=== PATIENT | female | born 1930 | race Caucasian/White ===

== ENCOUNTER → 2016-09-16 | Outpatient (CLI) | payer MEDICARE ==
[~2016-09-16] MED LIST: ALEN70TA39 PO; ARIM1TAB PO; BENI40TA30 PO; COMFSUS2 EACH EYE; FIBE625T24 PO; FISH1000 PO; FLOV220A INH; LEVO100T4 PO; LIOT5 PO; MOTR200T PO; MULT-65 PO; ROPI0.5T PO; STOO100T PO; VITA400C58 PO; XYZA5TAB2 PO
[2016-09-16 09:25] LABS: BACTERIA, URINE RARE /hpf; BLOOD, URINE TRACE (NEG); GLUCOSE,URINE NEG (NEG); KETONE, URINE NEG (NEG); MUCUS URINE FEW /lpf (OCC); NITRITE,URINE NEG (NEG); PH, URINE 5.5 (5.0-8.5); SQUAMOUS EPITHELIAL CELL URINE 1 /hpf (0-5); URINE COLOR YELLOW (YELLW/STRAW)
[2016-09-16 09:28] LABS: AUTOMATED NEUTROPHIL # 2.7 TH/MM3 (1.8-7.7); BASOPHIL % 0.4 % (0.0-2.0); EOSINOPHIL # 0.1 TH/MM3 (0-0.4); EOSINOPHIL % 2.9 % (0.0-4.0); HEMATOCRIT 37.6 % (35.0-46.0); HEMO FLAGS DIFF FINAL; LYMPHOCYTE # 1.3 TH/MM3 (1.0-4.8); MEAN CELL VOLUME 86.7 FL (80.0-100.0); MEAN CORPUSCULAR HEMOGLOBIN 28.8 PG (27.0-34.0); MEAN CORPUSCULAR HGB CONC 33.2 % (32.0-36.0); MONO % 9.9 % (0.0-8.0); NEUT % 58.8 % (16.0-70.0); PLATELET COUNT 285 TH/MM3 (150-450); RED BLOOD COUNT 4.34 MIL/MM3 (4.00-5.30); RED CELL DISTRIBUTION WIDTH 15.3 % (11.6-17.2); WHITE BLOOD COUNT 4.6 TH/MM3 (4.0-11.0)
[2016-09-16 09:30] LABS: COMMENT (UR) CULT NOT INDICATED; CULTURE IF INDICATED CULT NOT INDICATED
[2016-09-16 10:15] LABS: FERRITIN 59 NG/ML (8-252); FREE T4 1.29 NG/DL (0.76-1.46); HDL CHOLESTEROL 124.9 MG/DL (40.0-60.0); LDL CHOLESTEROL 127 MG/DL (0-99); TRANSFERRIN IRON PROFILE 267 MG/DL (200-360)
== END ==
LOC: PLAB 07:12
PROVIDERS: ATTEND Internal Medicine
DX: E78.5 Hyperlipidemia, unspecified (principal); I10 Essential (primary) hypertension; D64.9 Anemia, unspecified; E03.9 Hypothyroidism, unspecified
CPT/HCPCS: 36415; 80061; 81001; 82607; 82728; 82746; 83540; 83550; 84439; 85025

== ENCOUNTER → 2017-04-21 | Outpatient (CLI) | payer MEDICARE ==
[2017-04-21 10:03] LABS: FREE T3 1.94 PG/ML (2.18-3.98); FREE T4 1.23 NG/DL (0.76-1.46)
[2017-04-22 23:55] LABS: THYROGLOB ABS LESS THAN 1 IU/mL (< OR = 1)
[2017-04-23 23:51] LABS: THYROGLOBULN 0.2 ng/mL (2.8-40.9)
== END ==
LOC: PLAB 06:57
PROVIDERS: ATTEND Internal Medicine Endocrinology, Diabetes & Metabolism
DX: E03.9 Hypothyroidism, unspecified (principal); E89.0 Postprocedural hypothyroidism
CPT/HCPCS: 36415; 82533; 82607; 82747; 84432; 84439; 84443; 84481; 86376; 86800

== ENCOUNTER → 2017-09-07 | Outpatient (CLI) | payer MEDICARE ==
[2017-09-07 13:35] LABS: BICARBONATE 29.3 MEQ/L (21.0-32.0); CALCIUM 9.9 MG/DL (8.5-10.1); CREATININE 0.91 MG/DL (0.50-1.00)
[2017-09-07 13:46] LABS: FREE T3 3.33 PG/ML (2.18-3.98); FREE T4 1.27 NG/DL (0.76-1.46)
[2017-09-09 17:51] LABS: THYROID PEROX AB (MICROSOMAL) 7 IU/mL (<9)
[2017-09-10 03:49] LABS: THYROGLOB ABS LESS THAN 1 IU/mL (< OR = 1)
== END ==
LOC: PLAB 08:38
PROVIDERS: ATTEND Internal Medicine Endocrinology, Diabetes & Metabolism
DX: E03.9 Hypothyroidism, unspecified (principal)
CPT/HCPCS: 36415; 80048; 84432; 84439; 84443; 84481; 86376; 86800

== ENCOUNTER 2017-12-15 18:16 | Observation (INO) | payer MEDICARE ==
[~2017-12-15] VITALS: Ht 162.6 cm; Wt 55.0 kg
[2017-12-15 18:20] VITALS: BP 165/90; PULSE 122; RESP 16; TEMP 103; O2SAT 93
[2017-12-15 19:00] VITALS: BP 174/85; PULSE 113; RESP 18; TEMP 103; O2SAT 91; O2SAT 93
[2017-12-15] MEDS ORDERED: RESP: IPRATROPIUM 0.5 MG/2.5 ML NEB NEB ONE ×2 (19:45→23:45)
--- NOTE | 2017-12-15 19:50 | PD ---
HPI . Shortness of breath, fever Chief Complaint: Fever Time Seen by Provider: 19:23 Travel History International Travel<30 days: No Contact w/Intl Traveler<30days: No Traveled to known affect area: No History of Present Illness HPI Patient is a 86-year-old female who has a history of allergies she is on Flonase for her house parent she has had a 2 weeks course of coughing shortness of breath which is not getting any better. She saw her house parent 5 days ago started on Tessalon Perles. Which helped minimally but she continues with fever shortness of breath coughing she is bringing up greenish sputum she reports. And on initial eval she is deciding on room air to 90% O2 patient has a fever as well as body aches generalized malaise fever cough 7-10 day course. 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 She is with her recent senior software architect that she reports she met on [employer] she says they both have and and met recently. He does not have any cough or cold she has no sick contacts. PFSH Past Medical History Hx Anticoagulant Therapy: No Arthritis: Yes Asthma: No Autoimmune Disease: No Anxiety: No Depression: No Heart Rhythm Problems: No Cancer: Yes (THYROID; LUNG; BREAST) Cardiovascular Problems: Yes (HTN) High Cholesterol: No Chemotherapy: No Chest Pain: No COPD: No Cerebrovascular Accident: No Diabetes: No Endocrine: No Gastrointestinal Disorders: Yes GERD: Yes Hepatitis: No Hiatal Hernia: Yes (GERD) Hypertension: Yes Immune Disorder: No Medical other: Yes (ARTHRITIS) Musculoskeletal: No Neurologic: No Psychiatric: No Respiratory: Yes (SLEEP APNEA POSSIBLE) Migraines: Yes Radiation Therapy: Yes Seizures: No Sleep Apnea: No Thyroid Disease: Yes (Thyroidectomy) Influenza Vaccination: Yes ?: Not Past Surgical History Abdominal Surgery: Yes (APPEND) Appendectomy: Yes Body Medical Devices: ONE SCREW IN DISTAL LEG Endocrine Surgery: Yes (THYROIDECTOMY) Gynecologic Surgery: Yes (HYST) Hysterectomy: Yes Mastectomy: Yes (LEFT) Oral Surgery: Yes (T&A) Pacemaker: No Tonsillectomy: Yes Other Surgery: Yes Social History Alcohol Use: No Tobacco Use: No Substance Use: No Allergies-Medications (Allergen,Severity, Reaction): Coded Allergies: Sulfa (Sulfonamide Antibiotics) (Unverified Allergy, Severe, Rash, 12/15/17) codeine (Unverified Allergy, Severe, Rash, 12/15/17) Reported Meds & Prescriptions Reported Meds & Active Scripts Active Reported Tylenol (Acetaminophen) 325 Mg Tab 650 Mg PO BID PRN Tylenol (Acetaminophen) 325 Mg Tab 650 Mg PO BID PRN Genteal Severe Opth Gel (Hypromellose) 0.25-0.3% Gel 1 Drop EACH EYE DIRECTED PRN Latanoprost Opth Drops (Latanoprost) 0.005% Drops 1 Drop EACH EYE HS Refrigerate until opened. Olmesartan 20 Mg Tab 20 Mg PO DAILY Teresa-D 24 Hour Allergy (Fexofenadine-Pseudoephedrine ER 24 HR) 180-240 Mak 1 Tab PO DAILY Synthroid (Levothyroxine Sodium) 100 Mcg Tab 100 Mcg PO DAILY Liothyronine (Liothyronine Sodium) 5 Mcg Tab 5 Mcg PO DAILY Review of Systems Except as stated in HPI: all other systems reviewed are Neg General / Constitutional: Positive: Fever, Chills Respiratory: Positive: Cough, Shortness of Breath Musculoskeletal: Positive: Myalgias Neurologic: Positive: Weakness Physical Exam Narrative GENERAL: Patient is awake alert appears younger than it stated age SKIN: Warm and dry. HEAD: Atraumatic. Normocephalic. EYES: Pupils equal and round. No scleral icterus. No injection or drainage. ENT: No nasal bleeding or discharge. Mucous membranes pink and moist. NECK: Trachea midline. No JVD. CARDIOVASCULAR: Regular rate and rhythm. Patient has a holosystolic murmur RESPIRATORY: No accessory muscle use. Patient has a cough with deep inspiration and minimal expiratory wheeze and mild decreased breath sounds in lower lobe on the left GASTROINTESTINAL: Abdomen soft, non-tender, nondistended. Hepatic and splenic margins not palpable. MUSCULOSKELETAL: Extremities without clubbing, cyanosis, or edema. No obvious deformities. NEUROLOGICAL: Awake and alert. No obvious cranial nerve deficits. Motor grossly within normal limits. Five out of 5 muscle strength in the arms and legs. Normal speech. PSYCHIATRIC: Appropriate mood and affect; insight and judgment normal. Data Data Last Documented VS Vital Signs Date Time Temp Pulse Resp B/P (MAP) Pulse Ox O2 Delivery O2 Flow Rate FiO2 12/16/17 00:14 95 Nasal Cannula 2.00 12/16/17 00:01 73 16 117/57 (77) 12/15/17 20:00 98.7 Orders Orders Ipratropium Neb (Atrovent Neb) (12/15/17 19:45) Complete Blood Count With Diff (12/15/17 19:44) Comprehensive Metabolic Panel (12/15/17 19:44) Lipase (12/15/17 19:44) Ua Includes Microscopic (12/15/17 19:44) Chest, Pa & Lat (12/15/17 19:44) Oxygen Administration (12/15/17 19:45) Guaifenesin Liq (Robitussin Liq) (12/15/17 20:00) Influenzae A/B Antigen (12/15/17 19:46) Acetaminophen (Tylenol) (12/15/17 20:00) Blood Culture (12/15/17 19:56) Urine Culture (12/15/17 20:23) Prednisone (Deltasone) (12/15/17 21:45) Azithromycin (Zithromax) (12/15/17 21:45) Ipratropium Neb (Atrovent Neb) (12/15/17 23:45) Sodium Chloride 0.9% Flush (Ns Flush) (12/16/17 01:00) Sodium Chloride 0.9% Flush (Ns Flush) (12/16/17 09:00) Ceftriaxone Inj (Rocephin Inj) (12/16/17 01:00) Azithromycin Inj (Zithromax Inj) (12/16/17 09:00) Albuterol-Ipratropium Neb (Duoneb Neb) (12/16/17 01:00) Place In Observation (12/16/17 ) Vital Signs (Adult) Q4H (12/16/17 00:56) Notify Parameters (12/16/17 00:56) Intake + Output Q8H (12/16/17 00:56) ^ Smoking Cessation Counseling (12/16/17 00:56) Diet Heart Healthy (12/16/17 Breakfast) Resp Oxygen Braydon C Titrat 1-4 L (12/16/17 ) Heparin Inj (Heparin Inj) (12/16/17 09:00) Methylprednisolone So Succ Inj (Solumedr (12/16/17 06:00) Admit Order (Ed Use Only) (12/16/17 01:03) Labs Laboratory Tests Test 12/15/17 19:10 12/15/17 20:23 White Blood Count 8.4 TH/MM3 Red Blood Count 4.09 MIL/MM3 Hemoglobin 12.7 GM/DL Hematocrit 36.6 % Mean Corpuscular Volume 89.6 FL Mean Corpuscular Hemoglobin 31.0 PG Mean Corpuscular Hemoglobin Concent 34.6 % Red Cell Distribution Width 12.7 % Platelet Count 225 TH/MM3 Mean Platelet Volume 8.1 FL Neutrophils (%) (Auto) 88.9 % Lymphocytes (%) (Auto) 5.5 % Monocytes (%) (Auto) 5.2 % Eosinophils (%) (Auto) 0.2 % Basophils (%) (Auto) 0.2 % Neutrophils # (Auto) 7.5 TH/MM3 Lymphocytes # (Auto) 0.5 TH/MM3 Monocytes # (Auto) 0.4 TH/MM3 Eosinophils # (Auto) 0.0 TH/MM3 Basophils # (Auto) 0.0 TH/MM3 CBC Comment DIFF FINAL Differential Comment Blood Urea Nitrogen 18 MG/DL Creatinine 0.91 MG/DL Random Glucose 109 MG/DL Total Protein 7.8 GM/DL Albumin 3.5 GM/DL Calcium Level 9.6 MG/DL Alkaline Phosphatase 46 U/L Aspartate Amino Transf (AST/SGOT) 25 U/L Alanine Aminotransferase (ALT/SGPT) 22 U/L Total Bilirubin 0.4 MG/DL Sodium Level 136 MEQ/L Potassium Level 3.9 MEQ/L Chloride Level 102 MEQ/L Carbon Dioxide Level 27.6 MEQ/L Anion Gap 6 MEQ/L Estimat Glomerular Filtration Rate 59 ML/MIN Lipase 135 U/L Urine Color YELLOW Urine Turbidity CLEAR Urine pH 5.5 Urine Specific [place] 1.010 Urine Protein NEG mg/dL Urine Glucose (UA) NEG mg/dL Urine Ketones TRACE mg/dL Urine Occult Blood MOD Urine Nitrite NEG Urine Bilirubin NEG Urine Urobilinogen 0.2 MG/DL Urine Leukocyte Esterase SMALL Urine RBC 4-9 /hpf Urine WBC 6-8 /hpf Urine Squamous Epithelial Cells > 8 /hpf Urine Bacteria MANY /hpf Microscopic Urinalysis Comment CULTURE INDICATED MDM Medical Decision Making Medical Screen Exam Complete: Yes Emergency Medical Condition: Yes Medical Record Reviewed: Yes Differential Diagnosis Patient may have influenza versus viral bronchitis versus pneumonia versus UTI versus rhinovirus coronavirus causing inflammation of her lungs reactive airway allergic reaction other Narrative Course Chest x-ray is ordered urine is now analyzed labs are sent blood cultures, pt given Prednisone and tylenol azithromycin all PO in the hope I can treat pt as an outpt basis. However pt conitinues to desaturate on RA to 88 and will 1 liter o2 sat is 95% I observe 5 hrs and repeat atrovent nebs and still no improvement in Saturation , admitted to observation , within few hours in ER awaiting bed . pt improves greatly and feels much improved. Diagnosis Primary Impression: Bronchitis Additional Impression: Left lower lobe pneumonia Qualified Codes: J18.1 - Lobar pneumonia, unspecified organism Admitting Information Admitting Physician Requests: Observation Alfredo Mai MD December 15, 2017 19:50
[2017-12-15 19:58] LABS: AUTOMATED NEUTROPHIL # 7.5 TH/MM3 (1.8-7.7); BASOPHIL % 0.2 % (0.0-2.0); EOSINOPHIL % 0.2 % (0.0-4.0); HEMATOCRIT 36.6 % (35.0-46.0); HEMOGLOBIN 12.7 GM/DL (11.6-15.3); LYMPH % 5.5 % (9.0-44.0); LYMPHOCYTE # 0.5 TH/MM3 (1.0-4.8); MEAN CELL VOLUME 89.6 FL (80.0-100.0); MEAN CORPUSCULAR HGB CONC 34.6 % (32.0-36.0); MEAN PLATELET VOLUME 8.1 FL (7.0-11.0); MONO % 5.2 % (0.0-8.0); MONOCYTE # 0.4 TH/MM3 (0-0.9); NEUT % 88.9 % (16.0-70.0); PLATELET COUNT 225 TH/MM3 (150-450); RED BLOOD COUNT 4.09 MIL/MM3 (4.00-5.30); RED CELL DISTRIBUTION WIDTH 12.7 % (11.6-17.2); WHITE BLOOD COUNT 8.4 TH/MM3 (4.0-11.0)
[2017-12-15 20:00] VITALS: BP 125/66; PULSE 82; RESP 18; TEMP 98.7; O2SAT 96
[2017-12-15] MEDS ORDERED: guaiFENesin SOLUTION 200 MG/10 ML CUP PO ONE (20:00)
[2017-12-15] MEDS ORDERED: ACETAMINOPHEN 500 MG CPLT PO ONE (20:00)
[2017-12-15 20:15] LABS: CHLORIDE 102 MEQ/L (98-107); SODIUM (NA) 136 MEQ/L (136-145)
[2017-12-15 20:21] LABS: ALBUMIN 3.5 GM/DL (3.4-5.0); BICARBONATE 27.6 MEQ/L (21.0-32.0); BLOOD UREA NITROGEN 18 MG/DL (7-18); CALCIUM 9.6 MG/DL (8.5-10.1); GLUCOSE,RANDOM 109 MG/DL (74-106)
[2017-12-15 20:24] LABS: ALT (GPT) 22 U/L (10-53); AST (GOT) 25 U/L (15-37); CREATININE 0.91 MG/DL (0.50-1.00); GLOMERULAR FILTRATION RATE 59 ML/MIN (>89)
[2017-12-15 20:26] LABS: TOTAL BILIRUBIN ADULT 0.4 MG/DL (0.2-1.0); TOTAL PROTEIN 7.8 GM/DL (6.4-8.2)
[2017-12-15 20:27] LABS: ALKALINE PHOSPHATASE 46 U/L (45-117)
[2017-12-15 20:30] LABS: BILIRUBIN, URINE NEG (NEG); BLOOD, URINE MOD (NEG); GLUCOSE,URINE NEG (NEG); KETONE, URINE TRACE mg/dL (NEG); NITRITE,URINE NEG (NEG); PH, URINE 5.5 (5.0-8.5); URINE COLOR YELLOW (YELLW/STRAW); URINE LEUKOCYTE ESTERASE SMALL (NEG)
[2017-12-15 20:37] LABS: BACTERIA, URINE MANY /hpf; SQUAMOUS EPITHELIAL CELL URINE > 8 /hpf (0-5)
--- NOTE | 2017-12-15 20:53 | RADRPT ---
EXAM DATE/TIME: 12/15/2017 20:04 [place] COMPARISON: CHEST PA & LAT, April 30, 2016, 14:24. INDICATIONS : Cough for 1 week MEDICAL HISTORY : Carcinoma, breast. SURGICAL HISTORY : Left mastectomy ENCOUNTER: Initial ACUITY: 1 week PAIN SCORE: 0/10 LOCATION: Bilateral chest FINDINGS: PA and lateral views of the chest demonstrate minimal left basilar density. Right lung clear. Heart n ormal in size. Osseous structures are intact. Calcification right apex, likely benign granuloma. CONCLUSION: 1. Minimal left basilar infiltrate. Abdoul Lawrence MD on December 15, 2017 at 20:51 Board Certified Radiologist. This report was verified electronically.
[2017-12-15 21:00] VITALS: BP 122/69; PULSE 80; RESP 18; O2SAT 92
[2017-12-15] MEDS ORDERED: AZITHROMYCIN 250 MG TAB PO ONE (21:45)
[2017-12-15] MEDS ORDERED: predniSONE 20 MG TAB PO ONE (21:45)
[2017-12-15 22:00] VITALS: BP 107/50; PULSE 78; RESP 16; O2SAT 96
[2017-12-15 23:00] VITALS: BP 109/56; PULSE 74; RESP 18; O2SAT 96
[2017-12-15] MEDS ORDERED: LATA0.002 EACH EYE (23:33)
[2017-12-15] MEDS ORDERED: GENT0.3G EACH EYE (23:33)
[2017-12-15] MEDS ORDERED: LEVO.1 PO (23:33)
[2017-12-15] MEDS ORDERED: TYLE325T PO ×2 (23:33→23:34)
[2017-12-15] MEDS ORDERED: OLME0.09 PO (23:33)
[2017-12-15] MEDS ORDERED: FEXO1TAB97 PO (23:33)
[2017-12-15] MEDS ORDERED: LIOT5TAB3 PO (23:33)
[2017-12-16] VITALS (9 sets, daily range): BP systolic 111–151; BP diastolic 55–69; PULSE 70–80; RESP 16–21; TEMP 96.9–97.4; O2SAT 92–98
[2017-12-16] MEDS ORDERED: cefTRIAXone INJ 1,000 MG in SODIUM CHLORIDE 0.9% INJ 100 ML IV SCH (01:00)
[2017-12-16] MEDS ORDERED: SODIUM CHLORIDE 0.9% FLUSH 10 ML FLUSH IV FLUSH PRN (01:00)
[2017-12-16] MEDS: RESP: ALBUTEROL 2.5 MG/IPRATROPIUM 0.5 MG NEB (PRN) INH ×2 (03:59→07:26)
[2017-12-16] MEDS: methylPREDNISolone SOD SUCC 40 MG/1 ML VIAL IV PUSH SCH ×2 (06:55→15:36)
[2017-12-16] MEDS ORDERED: SODIUM CHLORIDE 0.9% FLUSH 10 ML FLUSH IV FLUSH SCH (09:00)
[2017-12-16] MEDS ORDERED: HEPARIN SODIUM - SQ 10,000 UNITS/ML VIAL SQ SCH (09:00)
[2017-12-16] MEDS ORDERED: AZITHROMYCIN INJ 500 MG in SODIUM CHLOR 0.9% 250 ML INJ 250 ML IV SCH (09:00)
[2017-12-16] MEDS: RESP: ALBUTEROL 2.5 MG/IPRATROPIUM 0.5 MG NEB (SCH) NEB ×2 (11:09→14:01)
--- NOTE | 2017-12-16 13:11 | HHI.HP ---
HPI Service [facility] Primary Care Physician Non-Staff Admission Diagnosis Bronchitis o2 desaturation Diagnoses: (1) Bronchitis (2) UTI (urinary tract infection) (3) Left lower lobe pneumonia Chief Complaint: Shortness of breath Cough Travel History International Travel<30 Days: No Contact w/Intl Traveler <30 Da: No Traveled to Known Affected Are: No History of Present Illness This is a pleasant 86-year-old female patient with a known medical history of hypertension, thyroidectomy, history of breast cancer who presented to the ED with complaints of productive cough and shortness of breath 2 weeks. Patient states she presented to her public relations account supervisor, Dr. Bautista, a few days ago for said complaints and was given Tessalon Perles for the coughing and was arranging for an outpatient nebulizer for shortness of breath. Supposedly patient developed a subjective fever of 104 last evening, felt increasingly fatigued and continued coughing with green colored productive sputum. Patient decided to come into the ED at the time she was evaluated and found to be with oxygen saturations of 90% on room air. Patient does state that she did have the flu season was provided with Tamiflu from her public relations account supervisor a few months back. It should be noted that patient does have a history of thyroidectomy at the age of 32 and underwent a vocal cord transplant 5 years ago at [facility] for comp locations from the thyroidectomy at that time. Patient denies any recent abdominal pain, nausea, vomiting or diarrhea or dysuria. Chest x-ray on presentation showing minimal left basilar infiltrate. Review of Systems Constitutional: COMPLAINS OF: Fatigue, Fever, Chills Endocrine: DENIES: Polyuria Eyes: DENIES: Blurred vision, Diplopia Respiratory: COMPLAINS OF: Cough, Sputum production, Shortness of breath Cardiovascular: DENIES: Chest pain Gastrointestinal: DENIES: Abdominal pain, Black stools, Bloody stools, Constipation, Diarrhea, Nausea, Vomiting Genitourinary: DENIES: Dysuria Musculoskeletal: DENIES: Joint pain Hematologic/lymphatic: DENIES: Bruising Neurologic: DENIES: Abnormal gait Psychiatric: COMPLAINS OF: Anxiety Except as stated in HPI: all other systems reviewed are Neg Past Family Social History Past Medical History History of thyroidectomy at the age of 32, 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 Arthritis History of breast cancer with mastectomy 5 years ago Hypertension GERD Sleep apnea next line migraines Past Surgical History History of thyroidectomy at the age of 32, 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 Olmesartan 20 Mg Tab 20 Mg PO DAILY Teresa-D 24 Hour Allergy (Fexofenadine-Pseudoephedrine ER 24 HR) 180-240 Mak 1 Tab PO DAILY Synthroid (Levothyroxine Sodium) 100 Mcg Tab 100 Mcg PO DAILY Liothyronine (Liothyronine Sodium) 5 Mcg Tab 5 Mcg PO DAILY Allergies: Coded Allergies: Sulfa (Sulfonamide Antibiotics) (Verified Allergy, Severe, Rash, 12/16/17) codeine (Verified Allergy, Severe, Rash, 12/16/17) Active Ordered Medications Current Medications Medications (Trade) Dose Ordered Sig/Destini Route Start Time Stop Time Status Last Admin (NS Flush) 2 ml UNSCH PRN IV FLUSH 12/16/17 01:00 (NS Flush) 2 ml BID IV FLUSH 12/16/17 09:00 12/16/17 08:36 Ceftriaxone Sodium 1000 mg/ Sodium Chloride 100 ml @ 200 mls/hr Q24H IV 12/16/17 01:00 12/16/17 02:01 Azithromycin 500 mg/Sodium Chloride 250 ml @ 250 mls/hr Q24H IV 12/16/17 09:00 12/16/17 08:36 (Duoneb Neb) 1 ampule Q4HR NEB PRN INH 12/16/17 01:00 12/16/17 07:26 (Heparin Inj) 5,000 units Q12H SQ 12/16/17 09:00 12/16/17 08:37 (SoluMEDROL INJ) 40 mg Q8HR IV PUSH 12/16/17 06:00 12/16/17 15:36 (Duoneb Neb) 1 ampule Q6HR WHILE AWAKE NEB NEB 12/16/17 08:00 12/16/17 14:01 Family History Maternal medical history significant for diabetes. Social History Patient denies any alcohol, tobacco or illicit drug use. Physical Exam Vital Signs Vital Signs Date Time Temp Pulse Resp B/P (MAP) Pulse Ox O2 Delivery O2 Flow Rate FiO2 12/16/17 08:00 97.1 78 21 118/58 (78) 95 12/16/17 07:27 95 21 12/16/17 04:04 92 21 12/16/17 04:00 96.9 71 20 146/63 (90) 94 12/16/17 03:10 80 16 132/64 (86) 95 12/16/17 01:10 70 16 111/55 (73) 96 Nasal Cannula 1.00 12/16/17 00:14 95 Nasal Cannula 2.00 12/16/17 00:01 73 16 117/57 (77) 95 Nasal Cannula 1.00 12/15/17 23:00 74 18 109/56 (73) 96 Nasal Cannula 2.00 12/15/17 22:00 78 16 107/50 (69) 96 Nasal Cannula 3.00 12/15/17 21:37 96 Nasal Cannula 2.00 12/15/17 21:00 80 18 122/69 (86) 92 Room Air 12/15/17 20:00 98.7 82 18 125/66 (85) 96 Nasal Cannula 2.00 12/15/17 19:00 18 93 Room Air 12/15/17 19:00 113 18 174/85 (114) 93 Room Air 12/15/17 19:00 103.0 113 18 174/85 (114) 91 Room Air 12/15/17 18:20 103.0 122 16 165/90 (115) 93 Physical Exam GENERAL: Well-developed, well-nourished patient in NAD. SKIN: Warm and dry. No rash. HEAD: Normocephalic. Atraumatic. EYES: Pupils equal and round. No scleral icterus. No injection or drainage. ENT: No nasal bleeding or discharge. Mucous membranes pink and moist. NECK: Supple. Trachea midline. CARDIOVASCULAR: Regular rate and rhythm. S1, S2 noted. No murmur appreciated. RESPIRATORY: No accessory muscle use. Expiratory coarse breath sounds in posterior bases. Breath sounds equal bilaterally. GASTROINTESTINAL: Abdomen soft, non-tender, nondistended. Normoactive bowel sounds x4. MUSCULOSKELETAL: No obvious deformities. Extremities without clubbing, cyanosis , or edema. NEUROLOGICAL: Awake and alert. No obvious cranial nerve deficits. Motor grossly within normal limits. 5/5 muscle strength in bilateral upper and lower extremities. Normal speech. PSYCHIATRIC: Appropriate mood and affect; insight and judgment normal. Laboratory Laboratory Tests Test 12/15/17 19:10 12/15/17 20:23 White Blood Count 8.4 Red Blood Count 4.09 Hemoglobin 12.7 Hematocrit 36.6 Mean Corpuscular Volume 89.6 Mean Corpuscular Hemoglobin 31.0 Mean Corpuscular Hemoglobin Concent 34.6 Red Cell Distribution Width 12.7 Platelet Count 225 Mean Platelet Volume 8.1 Neutrophils (%) (Auto) 88.9 Lymphocytes (%) (Auto) 5.5 Monocytes (%) (Auto) 5.2 Eosinophils (%) (Auto) 0.2 Basophils (%) (Auto) 0.2 Neutrophils # (Auto) 7.5 Lymphocytes # (Auto) 0.5 Monocytes # (Auto) 0.4 Eosinophils # (Auto) 0.0 Basophils # (Auto) 0.0 CBC Comment DIFF FINAL Differential Comment Blood Urea Nitrogen 18 Creatinine 0.91 Random Glucose 109 Total Protein 7.8 Albumin 3.5 Calcium Level 9.6 Alkaline Phosphatase 46 Aspartate Amino Transf (AST/SGOT) 25 Alanine Aminotransferase (ALT/SGPT) 22 Total Bilirubin 0.4 Sodium Level 136 Potassium Level 3.9 Chloride Level 102 Carbon Dioxide Level 27.6 Anion Gap 6 Estimat Glomerular Filtration Rate 59 Lipase 135 Urine Color YELLOW Urine Turbidity CLEAR Urine pH 5.5 Urine Specific [place] 1.010 Urine Protein NEG Urine Glucose (UA) NEG Urine Ketones TRACE Urine Occult Blood MOD Urine Nitrite NEG Urine Bilirubin NEG Urine Urobilinogen 0.2 Urine Leukocyte Esterase SMALL Urine RBC 4-9 Urine WBC 6-8 Urine Squamous Epithelial Cells > 8 Urine Bacteria MANY Microscopic Urinalysis Comment CULTURE INDICATED Date/Time Source Procedure Growth Status 12/15/17 20:10 Blood Peripheral Aerobic Blood Culture - Preliminary NO GROWTH IN 1 DAY Resulted 12/15/17 20:10 Blood Peripheral Anaerobic Blood Culture - Preliminary NO GROWTH IN 1 DAY Resulted 12/15/17 19:50 Nasal Aspirate Influenza Types A,B Antigen (GABE) - Final NEGATIVE FOR FLU A AND B ANTIGEN.... Complete 12/15/17 20:23 Urine Clean Catch Urine Culture Pending Received Result Diagram: 12/15/17190912/15/171909 Imaging Last Impressions Chest X-Ray 12/15/171943 Signed Impressions: Service Date/Time: Wednesday, December 15, 2017 20:04 - CONCLUSION: 1. Minimal left basilar infiltrate. Abdoul Lawrence MD Septic Shock Reassessment Septic shock perfusion: reassessment completed Caprini VTE Risk Assessment Caprini VTE Risk Assessment: Mod/High Risk (score >= 2) Caprini Risk Assessment Model Point Value = 1 Point Value = 2 Point Value = 3 Point Value = 5 Age 41-60 Minor surgery BMI > 25 kg/m2 Swollen legs Varicose veins or History of unexplained or recurrent spontaneous Oral contraceptives or hormone replacement Sepsis (< 1 month) Serious lung disease, including pneumonia (< 1 month) Abnormal pulmonary function Acute myocardial infarction Congestive heart failure (< 1 month) History of inflammatory bowel disease Medical patient at bed rest Age 61-74 Arthroscopic surgery Major open surgery (> 45 min) Laparoscopic surgery (> 45 min) Malignancy Confined to bed (> 72 hours) Immobilizing plaster cast Central venous access Age >= 75 History of VTE Family history of VTE Factor V Leiden Prothrombin [id number] Lupus anticoagulant Anticardiolipin antibodies Elevated serum homocysteine Heparin-induced thrombocytopenia Other congenital or acquired thrombophilia Stroke (< 1 month) Elective arthroplasty Hip, pelvis, or leg fracture Acute spinal cord injury (< 1 month) Prophylaxis Regimen Total Risk Factor Score Risk Level Prophylaxis Regimen 0-1 Low Early ambulation 2 Moderate Order ONE of the following: *Sequential Compression Device (SCD) *Heparin 5000 units SQ BID 3-4 Higher Order ONE of the following medications: *Heparin 5000 units SQ TID *Enoxaparin/Lovenox 40 mg SQ daily (WT < 150 kg, CrCl > 30 mL/min) *Enoxaparin/Lovenox 30 mg SQ daily (WT < 150 kg, CrCl > 10-29 mL/min) *Enoxaparin/Lovenox 30 mg SQ BID (WT < 150 kg, CrCl > 30 mL/min) AND/OR *Sequential Compression Device (SCD) 5 or more Highest Order ONE of the following medications: *Heparin 5000 units SQ TID (Preferred with Epidurals) *Enoxaparin/Lovenox 40 mg SQ daily (WT < 150 kg, CrCl > 30 mL/min) *Enoxaparin/Lovenox 30 mg SQ daily (WT < 150 kg, CrCl > 10-29 mL/min) *Enoxaparin/Lovenox 30 mg SQ BID (WT < 150 kg, CrCl > 30 mL/min) AND *Sequential Compression Device (SCD) Assessment and Plan Problem List: (1) Left lower lobe pneumonia ICD Code: J18.1 - Lobar pneumonia, unspecified organism Status: Acute Plan: Chest x-ray on presentation showing minimal left basilar infiltrate. Patient presents with productive cough and shortness of breath 2 weeks. Patient started on azithromycin and ceftriaxone in ED. Also was given duo nebs scheduled and as needed for shortness of breath. Also was given guaifenesin for cough and one-time dose of prednisone as well as scheduled steroids IV. Patient seen and examined and feeling much better. On room air with adequate saturations. No shortness of breath on exertion. Fever has improved. All symptoms have resolved. Will send home on antibiotics and steroid Dosepak. As well as Mucinex. Patient is stable at this time and agreeable to plan. Will follow up with public relations account supervisor. (2) UTI (urinary tract infection) ICD Code: N39.0 - Urinary tract infection, site not specified Plan: Patient denies any dysuria. Does state that she has had UTIs in the past. Will give her Ceftin to cover both community-acquired pneumonia and UTI. Will follow up with urine culture in the next couple days, and assess sensitivity. Problem Qualifiers (1) Left lower lobe pneumonia: Qualified Codes: J18.1 - Lobar pneumonia, unspecified organism Komal Garcia December 16, 2017 13:11
--- NOTE | 2017-12-16 13:14 | HHI.DCPOC ---
Discharge Care Plan Diagnosis: (1) UTI (urinary tract infection) (2) Left lower lobe pneumonia Goals to Promote Your Health * To prevent worsening of your condition and complications * To maintain your health at the optimal level Directions to Meet Your Goals Take your medications as prescribed Follow your dietary instruction Follow activity as directed Keep your appointments as scheduled Take your immunizations and boosters as scheduled If your symptoms worsen call your PCP, if no PCP go to Urgent Care Center or Emergency Room Smoking is Dangerous to Your Health. Avoid second hand smoke Call the 24-hour hour crisis hotline for domestic abuse at Komal Garcia December 16, 2017 13:14
[2017-12-16] MEDS ORDERED: MEDR4PAK PO (13:16)
[2017-12-16] MEDS ORDERED: CEFU1TAB18 PO (13:20)
[2017-12-16] MEDS ORDERED: HUMIBIDDM PO (14:05)
== END 2017-12-16 16:50 | disposition home or self-care (01) ==
LOC: PHED 18:16 → PHEDA 12-16 01:05 → PH3A 12-16 03:16
PROVIDERS: ADMIT Hospitalist; ATTEND Hospitalist
DX: J18.1 Lobar pneumonia, unspecified organism (principal); N39.0 Urinary tract infection, site not specified; I10 Essential (primary) hypertension; E89.0 Postprocedural hypothyroidism; K21.9 Gastro-esophageal reflux disease without esophagitis; G47.30 Sleep apnea, unspecified; F41.9 Anxiety disorder, unspecified; Z79.899 Other long term (current) drug therapy; Z85.3 Personal history of malignant neoplasm of breast
CPT/HCPCS: 71046; 80053; 81001; 83690; 85025; 87040; 87077; 87086; 87186; 87804; 94640; 94664; 96365; 96372; 96375; 96376; 99285; G0378; J0456; J0696; J1644; J2920; J7050; J7512; J7644

== ENCOUNTER → 2017-12-24 | Outpatient (CLI) | payer MEDICARE ==
[~2017-12-24] MED LIST changes: -ALEN70TA39 PO; -ARIM1TAB PO; -BENI40TA30 PO; +CEFU1TAB18 PO; -COMFSUS2 EACH EYE; +FEXO1TAB97 PO; -FIBE625T24 PO; -FISH1000 PO; -FLOV220A INH; +GENT0.3G EACH EYE; +HUMIBIDDM PO; +LATA0.002 EACH EYE; +LEVO.1 PO; -LEVO100T4 PO; -LIOT5 PO; +LIOT5TAB3 PO; +MEDR4PAK PO; -MOTR200T PO; -MULT-65 PO; +OLME0.09 PO; -ROPI0.5T PO; -STOO100T PO; +TYLE325T PO; -VITA400C58 PO; -XYZA5TAB2 PO
[2017-12-24 14:15] LABS: FREE T3 3.02 PG/ML (2.18-3.98); FREE T4 1.13 NG/DL (0.76-1.46)
== END ==
LOC: PLAB 09:38
PROVIDERS: ATTEND Internal Medicine Endocrinology, Diabetes & Metabolism
DX: E03.9 Hypothyroidism, unspecified (principal)
CPT/HCPCS: 36415; 84432; 84439; 84443; 84481; 86800